=== PATIENT | male | born 1990 | race Caucasian/White ===

== ENCOUNTER 2024-01-13 02:51 | Emergency (ER) | payer OTHER ==
[~2024-01-13] VITALS: Ht 165.1 cm; Wt 104.3 kg
[2024-01-13 02:56] VITALS: BP_SYST 89; PULSE 152; RESP 16; TEMP 99; O2SAT 97
[2024-01-13] MEDS: KETOROLAC TROMETHAMINE 30 MG VIAL IVP ONE (03:19)
[2024-01-13] MEDS: ONDANSETRON HCL 4 MG/2 ML VIAL IVP ONE (03:20)
[2024-01-13] MEDS ORDERED: IBUP-1971 PO (03:20)
[2024-01-13] MEDS ORDERED: ONDA8TAB60 PO (03:20)
[2024-01-13] MEDS: NACL 0.9% 1,000 ML IV ONE ×2 (03:23→04:15)
[2024-01-13 03:44] LABS: INFLUENZA TYPE A Negative (NEGATIVE); INFLUENZA TYPE B NEGATIVE (NEGATIVE)
[2024-01-13 05:13] VITALS: BP_SYST 94; PULSE 102; RESP 18; TEMP 98.2; O2SAT 96
== END 2024-01-13 05:13 | disposition home or self-care (01) ==
LOC: SED 02:51
DX: R51.9 Headache, unspecified (principal); R50.9 Fever, unspecified; R11.0 Nausea; R42 Dizziness and giddiness; R00.2 Palpitations; Z20.822 Contact with and (suspected) exposure to COVID-19
CPT/HCPCS: 99284; 96374; 96361; 96375; 87426; 36415; 87804 ×2; J1885; J2405; J7030